=== PATIENT | female | born 1940 | race Caucasian/White ===

== ENCOUNTER 2019-01-31 09:39 | Emergency (ER) | payer OTHER ==
--- NOTE | 2019-01-31 09:41 | PDOC ---
History of Present Illness - General Chief Complaint: Respiratory Stated Complaint: BREATHING PROBLEM Time Seen by Provider: 01/31/19 09:41 History Source: Patient Exam Limitations: No Limitations - History of Present Illness Initial Comments: 78 year old female with PMH nicotine use, HTN, HLD, hypothyroidism presented to ED for "breathing problems" and "foot problems". Daughter originally brought pt in and stated she needs to have her breathing issues and foot issue dealt with, and that she needs an FMLA form filled out, and then she left to go back to work. Pt reported she has had pain to her left 1st toe (at the base of the 1st MT) xmany years, that intermittently bothers her, causing a sometimes sharp pain in which she has to move her foot to stop her pain, she reported she feels the pain may be spreading to her other toes, and "I just need to find out what is causing this". She reported she has never had an X-ray or imaging of the left foot. She denied recent injury, fall, skin changes, fever, vomiting. She reported her shortness of breath is her baseline shortness of breath she believes is 2/2 smoking cigarettes. She reported she stopped smoking x4 days ago because "I inhaled and could not stop coughing, so I figured I had to stop" . She admitted to a few days of a dry cough. She denied fever, vomiting, chest pain, sputum production, lightheadedness, weakness. She reported she just moved here from [place], flying back (>10 hours), x6 days ago. She denied leg swelling, palpitations, hx DVT/PE, hx malignancy, hx hormone use, hemoptysis. She also complained of progressive unintentional weight-loss over hte last 2-3 months, but she cannot recall how much weight she has lost. PCP: None ROS General: denied fever, chills, generalized weakness. HEENT: denied sore throat, rhinorrhea, ear pain. Cardiovascular: denied chest pain, palpitations, syncope, diaphoresis. Respiratory: denied shortness of breath, cough, sputum production, hemoptysis. Gastrointestinal: denied abdominal pain, nausea, vomiting, diarrhea, constipation, blood in stool. Genitourinary: denied dysuria, increased urinary frequency, hematuria, urinary incontinence, flank pain. Back: denied back pain. Musculoskeletal: denied joint pain, muscle pain, joint swelling. Neurological: denied headache, dizziness, numbness, tingling, weakness. Integumentary: denied rash, laceration, abrasion. Hematologic/Lymphatic: denied bruising or bleeding. PE Constitutional: Well-nourished, Well-developed, appearing stated age. HEENT: head is normocephalic, atraumatic. EOMI. PERRLA. Neck: supple. Full ROM. Cardiovascular: regular heart rhythm. no murmurs. no pericardial friction rub. Respiratory: one inspiration wheeze on the right, then clear to auscultation bilaterally. no crackles, no rhonchi, no stridor. speaking full sentences. Gastrointestinal: soft, nontender. normal bowel sounds. no rebound, guarding, masses. Extremities: peripheral pulses intact. no lower extremity edema. no calf tenderness bilaterally. Left foot: no tenderness to palpation of medial or lateral malleolus. hallux valgus 1st MT. no tenderness to palpation of navicular/base of 5th MT. No tenderness to base of 1st MT. bilateral dusky toes. no erythema or cellulitis. Neurological: CN 2-12 grossly intact. moves all four extremities. Psych: awake, alert, oriented x3. follows commands. answers questions appropriately. 01/31/19 10:48 Past History - Past Medical History Allergies/Adverse Reactions: Allergies Allergy/AdvReac Type Severity Reaction Status Date / Time No Known Allergies Allergy Unverified 01/31/19 09:49 Home Medications: Ambulatory Orders Albuterol 0.083% Nebulizer Fawn [Ventolin 0.083% Nebulizer Soln -] 1 neb NEB Q4H PRN #30 vial 01/31/19 Albuterol Sulfate Inhaler - [Ventolin HFA Inhaler -] 1 - 2 inh PO Q4H PRN #1 inhaler 01/31/19 Aspirin 1 tab PO DAILY 01/31/19 Atenolol [Tenormin] 50 mg PO DAILY 01/31/19 Chlorthalidone [Hygroton -] 25 mg PO DAILY 01/31/19 Flurazepam HCl [Dalmane -] 30 mg PO HS 01/31/19 Folic Acid 01/31/19 Isosorbide Mononitrate [Ismo -] 10 mg PO BID 01/31/19 Levothyroxine Sodium [Euthyrox] 50 mcg PO DAILY 01/31/19 Nebulizer Accessories [Adult Aerosol Mask] 1 each QID PRN #1 each 01/31/19 Nebulizer [Compact Compressor Nebulizer] 1 each QID PRN #1 each 01/31/19 Rosuvastatin Calcium [Crestor] 10 mg PO HS 01/31/19 ED Treatment Course - LABORATORY CBC & Chemistry Diagram: 01/31/19 10:20 01/31/19 10:20 Medical Decision Making - Medical Decision Making 78 year old female with above PMH presented to ED for left 1st MT pain xmany years. Pt's daughter was also concerned about shortness of breath/"breathing problems" Initial Vital Signs Temp Pulse Resp BP Pulse Ox 97.6 F 77 18 116/90 94 L 01/31/19 09:41 01/31/19 09:41 01/31/19 09:41 01/31/19 09:41 01/31/19 09:41 Afebrile. No hypotension. Mild hypoxia on room air. No tachycardia. Labs ordered: CBC, CMP Imaging ordered: CXR, Left Foot XR Medications ordered: duonebx1 EKG performed at 1007: rate 72, regular rhythm, normal axis, normal intervals, flipped T in aVL/V2, no other ST changes. -No prior to compare. 01/31/19 11:13 CBC WBC 6.4 K/mm3 (4.0-10.8) 01/31/19 10:20 RBC 4.67 M/mm3 (3.60-5.2) 01/31/19 10:20 Hgb 15.8 GM/dl (10.7-15.3) H 01/31/19 10:20 Hct 46.5 % (32.4-45.2) H 01/31/19 10:20 MCV 99.6 fl (80-96) H 01/31/19 10:20 MCH 33.8 pg (25.7-33.7) H 01/31/19 10:20 MCHC 33.9 g/dl (32.0-36.0) 01/31/19 10:20 RDW 12.7 % (11.6-15.6) 01/31/19 10:20 Plt Count 287 K/MM3 (134-434) 01/31/19 10:20 MPV 7.3 fl (7.5-11.1) L 01/31/19 10:20 Absolute Neuts (auto) 4.4 K/mm3 01/31/19 10:20 Neutrophils % 70.2 % (42.8-82.8) 01/31/19 10:20 Lymphocytes % 21.5 % (8-40) 01/31/19 10:20 Monocytes % 7.1 % (3.8-10.2) 01/31/19 10:20 Eosinophils % 0.9 % (0-4.5) 01/31/19 10:20 Basophils % 0.3 % (0-2.0) 01/31/19 10:20 No leukocytosis. No anemia. Hemoconcentration. CMP Sodium 143 mmol/L (136-145) 01/31/19 10:20 Potassium 4.0 mmol/L (3.5-5.1) 01/31/19 10:20 Chloride 105 mmol/L (98-107) 01/31/19 10:20 Carbon Dioxide 31 mmol/L (21-32) 01/31/19 10:20 Anion Gap 7 MMOL/L (8-16) L 01/31/19 10:20 BUN 25.0 mg/dl (7-18) H 01/31/19 10:20 Creatinine 0.8 mg/dl (0.55-1.3) 01/31/19 10:20 Est GFR (CKD-EPI)AfAm 82.42 01/31/19 10:20 Est GFR (CKD-EPI)NonAf 71.11 01/31/19 10:20 Random Glucose 103 mg/dl (74-106) 01/31/19 10:20 Calcium 9.0 mg/dl (8.5-10) 01/31/19 10:20 Total Bilirubin 0.2 mg/dl (0.2-1) 01/31/19 10:20 AST 18 U/L (15-37) 01/31/19 10:20 ALT 16 U/L (13-61) 01/31/19 10:20 Alkaline Phosphatase 55 U/L (45-117) 01/31/19 10:20 Total Protein 6.8 g/dl (6.4-8.2) 01/31/19 10:20 Albumin 3.9 g/dl (3.4-5.0) 01/31/19 10:20 No electrolyte abnormalities. No CLARA. DEhydration (BUN/Cr >20) CXR report: Name: LUCIANO YAN DEPARTMENT OF RADIOLOGY Phys: LashayHue RESIDENT : 1940 Age: 78 Sex: F [facility] Acct: [id number] Loc: [facility] [address] Exam Date: 01/31/19 Status : [place] [address] Unit Number: [id number] EXAM#: TYPE/EXAM: RESULT: RAD/CHEST PA LAT Chest: Shortness of breath. There are no prior studies for comparison. There is a normal heart, normal aorta and normal lane. There are some coarse interstitial lung changes but no sign of a true infiltrate or failure. The angles are sharp. The soft tissues are intact. Significant arthritic changes are not seen. Increased interstitial changes could represent some chronic lung findings. Correlation and follow- up recommended. Reported By: Kumar Pettit MD 1103 L Foot XR report: Name: LUCIANO YAN DEPARTMENT OF RADIOLOGY Phys : Hue Metz RESIDENT : 1940 Age: 78 Sex: F [facility] Acct: [id number] Loc: [facility] [address] Exam Date: 01/31/19 Status : [place] [address] Unit Number: [id number] EXAM#: TYPE/EXAM: RESULT: RAD/FOOT-LEFT Left foot: Pain. 3 views of the left foot reveal some loss of bone density with extensive bunion formation by the first MTP joint and partially flexed toes when other arthritic findings. An acute fracture or subluxation is not seen. If symptoms persist, further imaging may be of help. Impression: No acute left foot pathology. Reported By: Kumar Pettit MD 01/31/19 1104 01/31/19 11:22 Pt informed of results, reported improvement of shortness of breath with duoneb. Will send pt home with nebulizer machine/mask, albuterol solution, albuterol rescue inhaler. Pt discharged. Discharge - Discharge Information Problems reviewed: Yes Clinical Impression/Diagnosis: Toe pain, Shortness of breath Condition: Improved Disposition: HOME - Admission No - Additional Discharge Information Prescriptions: Albuterol 0.083% Nebulizer Fawn [Ventolin 0.083% Nebulizer Soln -] 1 neb NEB Q4H PRN #30 vial PRN Reason: Asthma Albuterol Sulfate Inhaler - [Ventolin HFA Inhaler -] 1 - 2 inh PO Q4H PRN #1 inhaler PRN Reason: Shortness Of Breath Nebulizer [Compact Compressor Nebulizer] 1 each QID PRN #1 each PRN Reason: Shortness Of Breath Nebulizer Accessories [Adult Aerosol Mask] 1 each QID PRN #1 each PRN Reason: Asthma - Follow up/Referral Referrals: Walker Gunter MD [Staff Physician] - - Patient Discharge Instructions Patient Printed Discharge Instructions: DI for Chronic Obstructive Pulmonary Disease Additional Instructions: Follow up with a primary care doctor within 5 days. Your care is not complete until you follow up. -I have provided you with a referral for one of our providers I have sent a prescription for a nebulizer machine and the albuterol solution for inside it, to give nebulized treatments as needed for shortness of breath. I have sent a prescription for a albuterol rescue inhaler for you to use as needed for shortness of breath. Use as advised on inhaler. Return to the Emergency Department for chest pain, shortness of breath, vomiting , fever, palpitations, or any other new, worsening or concerning symptoms. - Post Discharge Activity
[2019-01-31 09:58] VITALS: BP 116/90; TEMP 97.6; BMI 18.3
--- NOTE | 2019-01-31 10:01 | PDOC ---
Attending Attestation - Resident Resident Name: Hue Metz - ED Attending Attestation I have performed the following: I have examined & evaluated the patient, The case was reviewed & discussed with the resident, I agree w/resident's findings & plan, Exceptions are as noted - HPI HPI: 01/31/19 10:02 78y F unknown pmhx presents sp fall. Patient states that she is had some mild atraumatic pain in her Right toe for many years today when she was standing Her pain mad her fall. Patient denies any head injury, LOC, back pain, neck pain, chest pain, extremity pain. Patient also notes that she has been feeling generally weak. However she denies any recent fever, chills, productive cough, shortness of breath, nausea, vomiting, diarrhea, dysuria, foul-smelling urine. Patient does note that she has had some weight loss approximately 20 to 30 pounds over the past year. Patient does note sometimes she feels out of breath when she is walking for long distance however states that is chronic for her. social: chronic smoker Patient does not have a primary care doctor in the recently moved from [place] ROS Constitutional - no reported Fever, Chills, HEENT: no reported vision changes, sore throat Respiratory: no reported cough, sob, hemoptysis Cardiac: no reported chest pain, palpitations, light headedness, leg swelling Abd/GI: no reported abd pain, nausea, vomiting, blood per rectum, melena, diarrhea : no reported dysuria, frequency, discharge Musculskelatal - +R foot pain no reported back pain, joint swelling skin - no reported bruising, erythema, rash neurological: no reported headache, numbness, focal weakness, tingling, ataxia, hematologic: no reported easy bruising, easy bleeding - Physicial Exam PE: 01/31/19 10:51 Physical Exam GENERAL: The patient is awake, alert, and fully oriented, Nontoxic - in no acute distress, thin appearing HEAD: Normocephalic, atraumatic. EYES: extraocular movements intact, sclera anicteric, conjunctiva clear. ENT: Normal voice, Moist mucous membranes. NECK: Normal range of motion, supple LUNGS: scattered wheeze, no acute respiratory distress, speaking complete sentences. HEART: Regular rate and rhythm, normal S1 and S2 without murmur, rub or gallop. ABDOMEN: Soft, nontender, No guarding, no rebound. No CVA tenderness EXTREMITIES: Normal range of motionBoth hips, knees, ankles, shoulders, elbows bilaterally, no edema. No focal bony tenderness on the right foot, ankle BACK: No focal bony tenderness in the cervical, thoracic, lumbar spine. NEUROLOGICAL: No facial assymetry, Normal speech, PSYCH: Normal mood, normal affect. SKIN: Warm, Dry, normal turgor, - Medical Decision Making 01/31/19 10:51 Will obtain screening blood work to rule out anemia, metabolic derangements, will obtain chest x-ray to rule out pneumonia patient is slightly hypoxic suspect this may be secondary to undiagnosed COPD as she is a chronic smoker. Obtain an ekg to screen for acs will give her duoneb 01/31/19 11:19 , Patient's blood work is reviePatient's blood work is reviewed, Likely hemoconcentration Will orally hydrate the patient's chest x-ray noted for mild blunting of the left costophrenic angle without other focal infiltrates. X-ray of her foot is unremarkable without signs of fracture We will give the patient albuterol for use if she feels short of breath, But will defer treatments with steroids as the patient does not Have any symptoms suggestive of acute COPD exacerbation Will discharge patient follow-up with primary care Return precautions were discussed
[2019-01-31 10:43] LABS: BASO % 0.3 % (0-2.0); EOS % 0.9 % (0-4.5); HEMATOCRIT 46.5 % (32.4-45.2); HEMOGLOBIN 15.8 GM/dl (10.7-15.3); LYMPH % 21.5 % (8-40); MCH 33.8 pg (25.7-33.7); MCHC 33.9 g/dl (32.0-36.0); MEAN CELL VOLUME 99.6 fl (80-96); MEAN PLT VOLUME 7.3 fl (7.5-11.1); MONO % 7.1 % (3.8-10.2); NEUT % 70.2 % (42.8-82.8); PLATELET COUNT 287 K/MM3 (134-434); RBC 4.67 M/mm3 (3.60-5.2); RDW 12.7 % (11.6-15.6); WHITE BLOOD COUNT 6.4 K/mm3 (4.0-10.8)
[2019-01-31] MEDS ORDERED: ALBUTEROL SO4 2.5/IPRATROPIUM 0.5 INH SOL 3 ML VIAL.NEB. NEB ONE ×2 (10:44→10:49)
[2019-01-31 10:48] LABS: ALBUMIN 3.9 g/dl (3.4-5.0); BILIRUBIN,TOTAL 0.2 mg/dl (0.2-1); CREATININE 0.8 mg/dl (0.55-1.3); TOT PROT 6.8 g/dl (6.4-8.2)
[2019-01-31 11:22] VITALS: PULSE 82
--- NOTE | 2019-02-01 13:19 | EKG ---
Test Reason : Blood Pressure : / mmHG Vent. Rate : 072 BPM Atrial Rate : 072 BPM P-R Int : 146 ms QRS Dur : 074 ms QT Int : 396 ms P-R-T Axes : 085 087 081 degrees QTc Int : 433 ms NORMAL SINUS RHYTHM RIGHT ATRIAL ENLARGEMENT NO PREVIOUS ECGS AVAILABLE Confirmed by IRMA TIRADO MD ([id number]) on 02/01/2019 1:19:04 PM Referred By: ALIZA RAMIREZ Confirmed By:IRMA TIRADO MD
== END 2019-01-31 11:48 | disposition home or self-care (01) ==
LOC: FER 09:39
PROC: 3E0F7GC Introduction of Other Therapeutic Substance into Respiratory Tract, Via Natural or Artificial Opening (ICD-10-PCS; principal; 2019-01-31)
DX: M79.675 Pain in left toe(s) (principal); R06.02 Shortness of breath; I10 Essential (primary) hypertension; Z87.891 Personal history of nicotine dependence; E78.5 Hyperlipidemia, unspecified; E03.9 Hypothyroidism, unspecified
CPT/HCPCS: 36415; 71046-TC-FY; 73630-TC-LT; 80053; 85025; 93005; 99283-25

== ENCOUNTER 2021-10-08 21:19 | Emergency (ER) | payer OTHER ==
[2021-10-08 21:45] VITALS: BP 163/96; PULSE 89; RESP 18; TEMP 98.6; BMI 17.6
[2021-10-08] MEDS ORDERED: AMOX TR/POT CLAV 875MG/125MG TABLETS (FP) PO ONE (22:03)
[2021-10-08] MEDS ORDERED: AMOX TR/POT CLAV 875MG/125MG TABLETS (FP) ONE (22:05)
== END 2021-10-08 22:08 | disposition home or self-care (01) ==
LOC: FER 21:19
DX: S51.832A Puncture wound without foreign body of left forearm, initial encounter (principal); S81.832A Puncture wound without foreign body, left lower leg, initial encounter; S81.831A Puncture wound without foreign body, right lower leg, initial encounter; W54.0XXA Bitten by dog, initial encounter
CPT/HCPCS: 99281-25

== ENCOUNTER 2022-06-24 19:12 | Emergency (ER) | payer OTHER ==
[2022-06-24 19:23] VITALS: BMI 17.7
[2022-06-24 20:03] LABS: EPITHELIAL CELLS FEW /hpf
[2022-06-24 20:04] LABS: URIC ACID CRYSTALS FEW /hpf (NONE SEEN)
[2022-06-24] MEDS ORDERED: SODIUM CHLORIDE 0.9% 500 ML INFUS.BAG IV ONE (20:28)
[2022-06-24] MEDS ORDERED: ACETAMINOPHEN 1000 MG/100 ML BAG IVPB ONE (20:28)
[2022-06-24] MEDS ORDERED: ACETAMINOPHEN INJECTION 100 ML IVPB ONE (20:30)
[2022-06-24 20:42] LABS: ALBUMIN 3.5 g/dl (3.4-5.0); BILIRUBIN,TOTAL 0.5 mg/dl (0.2-1); CALCIUM 8.4 mg/dl (8.5-10); TOT PROT 6.5 g/dl (6.4-8.2)
[2022-06-24 21:49] VITALS: BP 131/58; PULSE 97; RESP 20; TEMP 99.2
[2022-06-24 22:23] LABS: HEMATOCRIT 39.2 % (32.4-45.2); HEMOGLOBIN 13.8 GM/dL (10.7-15.3); MCH 32.1 pg (25.7-33.7); MCHC 35.2 g/dl (32.0-36.0); MEAN CELL VOLUME 91.3 fl (80-96); MEAN PLT VOLUME 7.6 fl (7.5-11.1); PLATELET COUNT 218 10^3/uL (134-434); RDW 13.5 % (11.6-15.6); WHITE BLOOD COUNT 9.8 K/mm3 (4.0-10.0)
[2022-06-24 22:36] LABS: VENOUS BASE EXCESS 3.1 mmol/L (-2-2); VENOUS O2 SATURATION 45.8 % (70-80); VENOUS PCO2 38.8 mmHg (38-52); VENOUS PH 7.46 (7.310-7.410)
== END 2022-06-25 00:40 | disposition home or self-care (01) ==
LOC: FER 19:12
PROC: 3E033GC Introduction of Other Therapeutic Substance into Peripheral Vein, Percutaneous Approach (ICD-10-PCS; principal; 2022-06-24)
DX: J18.9 Pneumonia, unspecified organism (principal)
CPT/HCPCS: 0241U-QW; 36415; 71045-TC-FY; 80053; 81003; 81015; 82550; 82553; 82803; 83605; 84484; 85027; 87040; 87086; 93005; 99285-25